=== PATIENT | male | born 1955 | race Hispanic/Latino ===

== ENCOUNTER 2022-06-15 14:50 | Inpatient (IN) | payer MEDICARE ==
[~2022-06-15] VITALS: Ht 170.2 cm; Wt 80.3 kg
[2022-06-15] MEDS ORDERED: HYDROCODONE/APAP 5MG-325MG TAB PO PRN (15:30)
[2022-06-15 15:41] LABS: BASOPHILS # (AUTO) 0.1 (0.0-0.1); BASOPHILS % 0.3 % (0.0-1.0); EOSINOPHILS # (AUTO) 0.1 (0.0-0.4); EOSINOPHILS % 0.5 % (0.0-6.0); HEMATOCRIT 39.7 % (38.2-49.6); HEMOGLOBIN 13.6 g/dL (14.0-18.0); LYMPHOCYTES % 5.5 % (18.0-39.1); MEAN CORPUSCULAR HEMOGLOBIN 29.8 pg (28-32); MEAN CORPUSCULAR HGB CONC 34.3 g/dL (31-35); MEAN CORPUSCULAR VOLUME 87.1 fL (81-99); MONOCYTES # (AUTO) 1.1 (0.2-0.8); MONOCYTES % 5.9 % (4.4-11.3); NEUTROPHILS # (AUTO) 16.2 (2.1-6.9); NEUTROPHILS % 86.9 % (38.7-80.0); PLATELET COUNT 472 x10e3/uL (140-360); RED BLOOD COUNT 4.56 x10e6/uL (4.3-5.7)
[2022-06-15 15:48] LABS: INR 0.98; PROTHROMBIN TIME 13.9 seconds (11.9-14.5)
[2022-06-15 15:55] LABS: ALANINE AMINOTRANSFERASE 88 IU/L (0-55); ALBUMIN 3.1 g/dL (3.5-5.0); ALBUMIN/GLOBULIN RATIO 0.7 (0.8-2.0); ALKALINE PHOSPHATASE 249 IU/L (40-150); ANION GAP 16.9 mmol/L (8-16); BLOOD UREA NITROGEN 28 mg/dL (7-26); BUN/CREATININE RATIO 20 (6-25); CALCIUM 9.3 mg/dL (8.4-10.2); CARBON DIOXIDE 23 mmol/L (22-29); CHLORIDE 99 mmol/L (98-107); GLUCOSE 260 mg/dL (74-118); POTASSIUM 4.9 mmol/L (3.5-5.1); SODIUM 134 mmol/L (136-145)
[2022-06-15] MEDS ORDERED: Morphine 4mg INJECTION 4 MG/ML INJ IV PRN (16:00)
[2022-06-15] MEDS ORDERED: ONDANSETRON HCL INJ 2MG/ML 2ML 2 MG/ML VIAL IV PRN (16:00)
[2022-06-15] MEDS ORDERED: SODIUM CHLORIDE 0.9% 1000ML 1,000 ML IV ONE ×2 (16:00→19:30)
[2022-06-15] MEDS ORDERED: DEXTROSE 50% SYRINGE 50 ML IV PRN (16:45)
[2022-06-15] MEDS: INSULIN REGULAR, HUMAN 100 UNIT/1 ML SQ SCH ×2 (17:15→21:00)
[2022-06-15] MEDS: SODIUM CHLORIDE 0.9% 1000ML 1,000 ML IV SCH (17:34)
[2022-06-15] MEDS: Vancomycin IV 1 GM in SODIUM CHLORIDE 0.9% 250ML 250 ML IV SCH (17:35)
[2022-06-15] MEDS ORDERED: ACETAMINOPHEN 325 MG TAB PO ONE (17:45)
[2022-06-15] MEDS ORDERED: IBUPROFEN 400 MG TAB PO ONE (18:45)
[2022-06-15 21:00] VITALS: BP 104/50
[2022-06-16] VITALS (7 sets, daily range): BP systolic 101–122; BP diastolic 54–66
[2022-06-16] MEDS ORDERED: HYDRALAZINE HCL 20 MG/ML VIAL IV PRN (00:30)
[2022-06-16] MEDS ORDERED: ACETAMINOPHEN 325 MG TAB PO PRN (00:30)
[2022-06-16] MEDS ORDERED: POLYETHYLENE GLYCOL 3350 17 GM PACK PO PRN (00:30)
[2022-06-16 05:54] LABS: BASOPHILS # (AUTO) 0.1 (0.0-0.1); BASOPHILS % 0.3 % (0.0-1.0); EOSINOPHILS # (AUTO) 0.2 (0.0-0.4); EOSINOPHILS % 1.1 % (0.0-6.0); HEMATOCRIT 33.2 % (38.2-49.6); LYMPHOCYTES # (AUTO) 1.5 (1.0-3.2); LYMPHOCYTES % 8.4 % (18.0-39.1); MEAN CORPUSCULAR HEMOGLOBIN 29.3 pg (28-32); MEAN CORPUSCULAR HGB CONC 33.1 g/dL (31-35); MEAN CORPUSCULAR VOLUME 88.5 fL (81-99); MONOCYTES % 5.7 % (4.4-11.3); NEUTROPHILS # (AUTO) 14.6 (2.1-6.9); NEUTROPHILS % 83.6 % (38.7-80.0); PLATELET COUNT 396 x10e3/uL (140-360); RED BLOOD COUNT 3.75 x10e6/uL (4.3-5.7); RED CELL DISTRIBUTION WIDTH 13.1 % (11.7-14.4)
[2022-06-16] MEDS: Vancomycin IV 1 GM in SODIUM CHLORIDE 0.9% 250ML 250 ML IV SCH ×2 (06:04→18:54)
[2022-06-16 06:24] LABS: ANION GAP 16.6 mmol/L (8-16); CREATININE, SERUM 1.25 mg/dL (0.72-1.25); POTASSIUM 4.6 mmol/L (3.5-5.1)
[2022-06-16 07:05] LABS: CHOL/HDL RATIO 3.5 (3.9-4.7); PHOSPHORUS 3.8 MG/DL (2.3-4.7)
[2022-06-16 07:28] LABS: THYROID STIMULATING HORMONE 1.111 uIU/mL (0.350-4.940)
[2022-06-16] MEDS: FAMOTIDINE 20 MG TAB PO SCH ×2 (07:30→17:48)
[2022-06-16] MEDS: INSULIN REGULAR, HUMAN 100 UNIT/1 ML SQ SCH ×4 (07:30→22:53)
[2022-06-16] MEDS: SODIUM CHLORIDE 0.9% 1000ML 1,000 ML IV SCH ×2 (08:00→16:00)
[2022-06-16] MEDS: DOCUSATE SODIUM 100 MG CAP PO SCH ×2 (09:00→17:48)
[2022-06-16] MEDS ORDERED: DEXAMETHASONE SOD PHOS INJ 4 MG/ML SDV ONE (12:31)
[2022-06-16] MEDS ORDERED: POVIDONE IODINE 0.05% 0.05 % ML PO ONE (12:31)
[2022-06-16] MEDS ORDERED: LIDOCAINE HCL 2% LOCAL INJ 5 ML SDV VIAL INJ ONE (12:31)
[2022-06-16] MEDS ORDERED: ONDANSETRON HCL INJ 2MG/ML 2ML 2 MG/ML VIAL ONE (12:31)
[2022-06-16] MEDS ORDERED: PROPOFOL IV EMULSION 10 MG/ML 20 ML VIAL ONE (12:31)
[2022-06-16] MEDS ORDERED: SEVOFLURANE INHAL SOLN 250 ML PEN BTL ONE (12:31)
[2022-06-16] MEDS ORDERED: FENTANYL CITRATE/PF 100MCG/2 ML INJ ONE (12:49)
[2022-06-16] MEDS ORDERED: MIDAZOLAM HCL 2 MG/2 ML VIAL ONE (12:49)
[2022-06-16] MEDS: HYDROCODONE/APAP 7.5MG-325MG 1 EA TAB PO PRN (14:11)
[2022-06-17] VITALS (7 sets, daily range): BP systolic 116–144; BP diastolic 54–84
[2022-06-17 05:54] LABS: BASOPHILS % 0.2 % (0.0-1.0); EOSINOPHILS # (AUTO) 0.1 (0.0-0.4); EOSINOPHILS % 0.5 % (0.0-6.0); HEMATOCRIT 31.3 % (38.2-49.6); LYMPHOCYTES # (AUTO) 1.2 (1.0-3.2); LYMPHOCYTES % 9.3 % (18.0-39.1); MEAN CORPUSCULAR HEMOGLOBIN 29.6 pg (28-32); MEAN CORPUSCULAR HGB CONC 31.6 g/dL (31-35); MEAN CORPUSCULAR VOLUME 93.4 fL (81-99); MONOCYTES # (AUTO) 0.8 (0.2-0.8); MONOCYTES % 6.3 % (4.4-11.3); NEUTROPHILS # (AUTO) 10.4 (2.1-6.9); NEUTROPHILS % 82.7 % (38.7-80.0); PLATELET COUNT 402 x10e3/uL (140-360); RED BLOOD COUNT 3.35 x10e6/uL (4.3-5.7); RED CELL DISTRIBUTION WIDTH 13.1 % (11.7-14.4)
[2022-06-17] MEDS: Vancomycin IV 1 GM in SODIUM CHLORIDE 0.9% 250ML 250 ML IV SCH ×2 (06:00→17:11)
[2022-06-17 06:13] LABS: ANION GAP 12.6 mmol/L (8-16); CALCIUM 7.7 mg/dL (8.4-10.2); CREATININE, SERUM 0.91 mg/dL (0.72-1.25); POTASSIUM 4.6 mmol/L (3.5-5.1)
[2022-06-17 06:18] LABS: HEMOGLOBIN 9.9 g/dL (14.0-18.0)
[2022-06-17] MEDS: DOCUSATE SODIUM 100 MG CAP PO SCH ×2 (09:46→17:11)
[2022-06-17] MEDS: HYDROCODONE/APAP 7.5MG-325MG 1 EA TAB PO PRN (09:46)
[2022-06-17] MEDS: FAMOTIDINE 20 MG TAB PO SCH ×2 (09:46→17:12)
[2022-06-17] MEDS: INSULIN REGULAR, HUMAN 100 UNIT/1 ML SQ SCH ×4 (10:43→20:34)
[2022-06-17] MEDS ORDERED: ONDANSETRON HCL 4 MG ORAL DISINTEGRATING TAB PO PRN (11:15)
[2022-06-18] VITALS (7 sets, daily range): BP systolic 106–162; BP diastolic 53–86
[2022-06-18 06:08] LABS: BASOPHILS % 0.2 % (0.0-1.0); EOSINOPHILS # (AUTO) 0.1 (0.0-0.4); EOSINOPHILS % 1.4 % (0.0-6.0); HEMATOCRIT 31.1 % (38.2-49.6); HEMOGLOBIN 9.6 g/dL (14.0-18.0); LYMPHOCYTES # (AUTO) 1.7 (1.0-3.2); LYMPHOCYTES % 17.9 % (18.0-39.1); MEAN CORPUSCULAR HEMOGLOBIN 29.3 pg (28-32); MEAN CORPUSCULAR HGB CONC 30.9 g/dL (31-35); MEAN CORPUSCULAR VOLUME 94.8 fL (81-99); MONOCYTES # (AUTO) 0.6 (0.2-0.8); MONOCYTES % 6.7 % (4.4-11.3); NEUTROPHILS # (AUTO) 6.8 (2.1-6.9); NEUTROPHILS % 73.4 % (38.7-80.0); PLATELET COUNT 456 x10e3/uL (140-360); RED BLOOD COUNT 3.28 x10e6/uL (4.3-5.7); RED CELL DISTRIBUTION WIDTH 13.2 % (11.7-14.4)
[2022-06-18 06:34] LABS: ANION GAP 17.1 mmol/L (8-16); CALCIUM 7.9 mg/dL (8.4-10.2); CREATININE, SERUM 0.77 mg/dL (0.72-1.25); POTASSIUM 4.1 mmol/L (3.5-5.1)
[2022-06-18] MEDS: INSULIN REGULAR, HUMAN 100 UNIT/1 ML SQ SCH ×4 (07:30→21:10)
[2022-06-18] MEDS: METFORMIN HCL 500 MG TAB PO SCH (09:44)
[2022-06-18] MEDS: FAMOTIDINE 20 MG TAB PO SCH ×2 (09:44→17:31)
[2022-06-18] MEDS: DOCUSATE SODIUM 100 MG CAP PO SCH ×2 (09:44→17:31)
[2022-06-18] MEDS ORDERED: Vancomycin IV 1 GM in SODIUM CHLORIDE 0.9% 250ML 250 ML IV SCH (11:00)
[2022-06-18] MEDS ORDERED: METFORMIN HCL1000 MG (15:14)
[2022-06-18] MEDS ORDERED: JARDIANCE10 MG (17:41)
[2022-06-18] MEDS ORDERED: LOSARTAN POTASS50 MG (17:41)
[2022-06-18] MEDS ORDERED: AMLODIPINE BESY10 MG (17:41)
[2022-06-18] MEDS ORDERED: ATORVASTATIN CA20 MG (17:41)
[2022-06-18] MEDS ORDERED: HYDROCHLOROTH12.5 MG (17:41)
[2022-06-18] MEDS ORDERED: LOSARTAN POTAS100 MG (17:41)
[2022-06-18] MEDS ORDERED: LOSARTAN POTAS100 MG PO ×2 (18:05)
[2022-06-18] MEDS ORDERED: ATORVASTATIN CA20 MG PO (18:05)
[2022-06-18] MEDS ORDERED: METFORMIN HCL500 MG PO (18:05)
[2022-06-18] MEDS ORDERED: JARDIANCE10 MG PO (18:05)
[2022-06-18] MEDS ORDERED: HYDROCHLOROTHIA25 MG PO (18:05)
[2022-06-18] MEDS ORDERED: AMLODIPINE BESY10 MG PO (18:05)
[2022-06-18] MEDS: ATORVASTATIN 20 MG TAB PO SCH (21:04)
[2022-06-18] MEDS: AMLODIPINE BESYLATE 10 MG TAB PO SCH (21:05)
[2022-06-19] VITALS (8 sets, daily range): BP systolic 130–153; BP diastolic 59–87
[2022-06-19] MEDS ORDERED: PIPERACILLIN/TAZOBACTAM 3.375 GM VIAL ONE (08:45)
[2022-06-19] MEDS: DOCUSATE SODIUM 100 MG CAP PO SCH ×2 (09:14→17:07)
[2022-06-19] MEDS: METFORMIN HCL 500 MG TAB PO SCH (09:14)
[2022-06-19] MEDS: FAMOTIDINE 20 MG TAB PO SCH ×2 (09:14→17:08)
[2022-06-19] MEDS: AMLODIPINE BESYLATE 10 MG TAB PO SCH (09:14)
[2022-06-19] MEDS: INSULIN REGULAR, HUMAN 100 UNIT/1 ML SQ SCH ×4 (09:23→20:42)
[2022-06-19] MEDS ORDERED: NEOMYCIN/POLYMYXIN/BACITRACIN 15 GM TUBE TOP SCH (11:00)
[2022-06-19] MEDS: ATORVASTATIN 20 MG TAB PO SCH (20:55)
[2022-06-20] VITALS: BP 138/68
[2022-06-20 04:00] VITALS: BP 129/72
[2022-06-20 05:37] LABS: BASOPHILS % 0.3 % (0.0-1.0); EOSINOPHILS # (AUTO) 0.1 (0.0-0.4); EOSINOPHILS % 1.7 % (0.0-6.0); HEMATOCRIT 30.1 % (38.2-49.6); HEMOGLOBIN 9.7 g/dL (14.0-18.0); LYMPHOCYTES # (AUTO) 1.5 (1.0-3.2); LYMPHOCYTES % 21.3 % (18.0-39.1); MEAN CORPUSCULAR HEMOGLOBIN 29.8 pg (28-32); MEAN CORPUSCULAR HGB CONC 32.2 g/dL (31-35); MEAN CORPUSCULAR VOLUME 92.3 fL (81-99); MONOCYTES # (AUTO) 0.5 (0.2-0.8); MONOCYTES % 7.2 % (4.4-11.3); NEUTROPHILS # (AUTO) 4.8 (2.1-6.9); NEUTROPHILS % 69.1 % (38.7-80.0); PLATELET COUNT 494 x10e3/uL (140-360); RED BLOOD COUNT 3.26 x10e6/uL (4.3-5.7); RED CELL DISTRIBUTION WIDTH 13.2 % (11.7-14.4)
[2022-06-20 06:08] LABS: ANION GAP 16.9 mmol/L (8-16); CALCIUM 8.1 mg/dL (8.4-10.2); CREATININE, SERUM 0.77 mg/dL (0.72-1.25); POTASSIUM 3.9 mmol/L (3.5-5.1)
[2022-06-20] MEDS: INSULIN REGULAR, HUMAN 100 UNIT/1 ML SQ SCH (07:30)
[2022-06-20 08:00] VITALS: BP 129/72
[2022-06-20 08:39] VITALS: BP 162/72
[2022-06-20] MEDS: FAMOTIDINE 20 MG TAB PO SCH (09:25)
[2022-06-20] MEDS: METFORMIN HCL 500 MG TAB PO SCH (09:25)
[2022-06-20] MEDS: DOCUSATE SODIUM 100 MG CAP PO SCH (09:25)
[2022-06-20] MEDS: AMLODIPINE BESYLATE 10 MG TAB PO SCH (09:26)
[2022-06-20] MEDS ORDERED: ACETAMINOPHEN-1 EAC4 PO (11:30)
[2022-06-20] MEDS ORDERED: AUGMENTIN 500-1 EACH PO (11:30)
[2022-06-20 11:41] VITALS: BP 163/75
== END 2022-06-20 14:29 | disposition home or self-care (01) | DRG 854 ==
LOC: ER 14:55 → ERHOLD 15:54 → MED/SURG2 20:10
PROVIDERS: ADMIT Internal Medicine; ATTEND Internal Medicine
PROC: 3E03329 Introduction of Other Anti-infective into Peripheral Vein, Percutaneous Approach (ICD-10-PCS; principal; 2022-06-15)
PROC: 0JB70ZZ Excision of Back Subcutaneous Tissue and Fascia, Open Approach (ICD-10-PCS; 2022-06-16)
DX: A41.9 Sepsis, unspecified organism (principal); L02.212 Cutaneous abscess of back [any part, except buttock and flank]; L03.312 Cellulitis of back [any part except buttock and flank]; N17.9 Acute kidney failure, unspecified; L72.3 Sebaceous cyst; I10 Essential (primary) hypertension; E11.69 Type 2 diabetes mellitus with other specified complication; E78.5 Hyperlipidemia, unspecified; Z20.822 Contact with and (suspected) exposure to COVID-19; Z79.84 Long term (current) use of oral hypoglycemic drugs
CPT/HCPCS: 0223U; 36415; 71045; 80048; 80053; 80061; 80202; 82948; 83036; 83605; 83735; 84100; 84443; 85025; 85610; 87040; 87071; 87075; 87205; 88304; 93005; 94799; 96361; 99251; 99284; J1100; J1817; J2001; J2250; J2270; J2405; J2543; J3010; J3370; J7030; J7050